=== PATIENT | female | born 1935 | race Caucasian/White ===

== ENCOUNTER → 2017-01-18 | Outpatient (CLI) | payer MEDICARE, OTHER ==
--- NOTE | ~2017-01-18 | CR173 ---
[facility] A Service of [facility] & [facility] RADIOLOGY TEXT RESULTS PATIENT: IRVING ANTONY LOCATION: [facility] : 33 UNIT #: [id number] AGE: [address]: CARLOS CORDERO MD SEX: F ORDER DR: [id number] [facility] [address] [place], [place] [address] [id number] O MR#: [id number] Acc #: [id number] NAME: IRVING ANTONY : 1935 SEX: F STUDY DATE/TIME: 01/18/2017 15:24 UNIT: [facility] ROOM: STUDY DESCRIPTION: CR Knee 3 Views Rt Attending Physician: Carlos Cordero M.D. Referring Physician: Carlos Cordero M.D. Ordering Physician: Carlos Cordero M.D. Primary Care Physician: Carlos Cordero M.D. MEDICAL IMAGING REPORT This report is preliminary unless electronic signature is present EXAM Right knee. INDICATIONS Pain and swelling. Fall 2 weeks ago. FINDINGS Three views of the right knee without comparison. There is no acute fracture or dislocation. No knee effusion. Alignment is anatomic. IMPRESSION No acute findings. Dictated by... Guerrero Lee M.D. THIS IS AN ELECTRONICALLY VERIFIED REPORT Guerrero Lee M.D. at 01/19/2017 8:47 AM TISHA/alena TD: 01/18/2017 20:12 JOB #: [id number] MEDICAL IMAGING REPORT Page 1 of 1 COPY
== END | disposition home or self-care (01) ==
LOC: CRAD 15:13
DX: M25.461 Effusion, right knee (principal)
CPT/HCPCS: 73562